=== PATIENT | male | born 1990 | race Caucasian/White ===

== ENCOUNTER 2022-11-24 11:01 | Emergency (ER) | payer SELFPAY ==
[2022-11-24 11:26] LABS: Absolute Lymphocytes (CBC) 1.7 K/uL (0.7-4.9); Hematocrit 47.5 % (39.6-49.0); Lymphocytes % 28.8 % (15.3-44.8); MCV 92.8 fL (80-100); RBC Red Blood Cell Count 5.11 M/uL (4.33-5.43)
[2022-11-24] MEDS ORDERED: KETOROLAC 30 MG/ML INJ ONE (11:28)
[2022-11-24] MEDS ORDERED: NA CHLORIDE 0.9% 1,000 ML ONE (11:30)
[2022-11-24 11:35] LABS: Specific Gravity 1.022 (1.005-1.030); Urine Bacteria None Seen /HPF (<20); Urine Bilirubin NEGATIVE (Negative); Urine Blood Negative (Negative); Urine Clarity Extremely Turbid (Clear); Urine Color Yellow (Yellow); Urine Glucose NEGATIVE (Negative); Urine Mucus Slight /HPF (None Seen); Urine Protein NEGATIVE (Negative); Urine RBC <5 /HPF (None Seen); Urine Urobilinogen Normal (Normal)
[2022-11-24 11:45] LABS: Albumin 3.9 g/dL (3.4-5.0); Bilirubin Total 0.3 mg/dL (0.2-1.0); Potassium 4.1 mEq/L (3.5-5.1); Protein, Total 7.2 g/dL (6.4-8.2)
--- NOTE | 2022-11-24 12:13 | ER ---
Nurse's Notes [facility] Name: Andrea Mendoza Age: 32 yrs Sex: Male : 1990 Arrival Date: 11/24/2022 Time: 11:01 Bed 19 Private MD: Diagnosis: Low back pain Presentation: 11/24 11:12 Chief complaint: Patient states: lower back pain X 1 week, +dark urine, no pain with iw urination or blood in urine, deniesn/v/d , no fever. Coronavirus screen: At this time, the client does not indicate any symptoms associated with coronavirus-19. Ebola Screen: Patient negative for fever greater than or equal to 101.5 degrees Fahrenheit, and additional compatible Ebola Virus Disease symptoms Patient denies exposure to infectious person. Patient denies travel to an Ebola-affected area in the 21 days before illness onset. No symptoms or risks identified at this time. Initial Sepsis Screen: Does the patient meet any 2 criteria? No. Patient's initial sepsis screen is negative. Does the patient have a suspected source of infection? No. Patient's initial sepsis screen is negative. Risk Assessment: Do you want to hurt yourself or someone else? Patient reports no desire to harm self or others. Onset of symptoms was November 16, 2022. 11:12 Method Of Arrival: Ambulatory iw 11:12 Acuity: JW 3 iw Triage Assessment: 11:30 General: Appears in no apparent distress. iw Historical: - Allergies: 11:14 No Known Allergies; iw - Home Meds: 11:14 None [Active]; iw - PMHx: 11:14 None; iw - PSHx: 11:14 None; iw - Immunization history:: Adult Immunizations not up to date. - Social history:: Smoking status: Patient reports the use of cigarette tobacco products, smokes one-half pack cigarettes per day. Screenin:28 [facility] ED Fall Risk Assessment (Adult) History of falling in the last 3 months, db including since admission No falls in past 3 months (0 pts) Confusion or Disorientation No (0 pts) Intoxicated or Sedated No (0 pts) Impaired Gait No (0 pts) Mobility Assist Device Used No (0 pt) Altered Elimination No (0 pt) Score/Fall Risk Level 0 - 2 = Low Risk Oriented to surroundings, Maintained a safe environment. Abuse screen: Denies threats or abuse. Denies injuries from another. Nutritional screening: No deficits noted. Tuberculosis screening: No symptoms or risk factors identified. Assessment: 11:16 Reassessment: Patient appears in no apparent distress at this time. Patient and/or db family updated on plan of care and expected duration. Pain level reassessed. Patient is alert, oriented x 3, equal unlabored respirations, skin warm/dry/pink. COMPLAINS OF RIGHT FLANK PAIN. General: Appears in no apparent distress. comfortable, Behavior is calm, cooperative. Pain: Complains of pain in back. Neuro: Level of Consciousness is awake, alert, obeys commands, Oriented to person, place, time, situation. 12:30 Reassessment: Patient appears in no apparent distress at this time. Patient and/or iw family updated on plan of care and expected duration. Pain level reassessed. Patient is alert, oriented x 3, equal unlabored respirations, skin warm/dry/pink. General: Appears in no apparent distress. comfortable. Vital Signs: 11:12 BP 136 / 92; Pulse 78; Resp 16; Temp 98.4; Pulse Ox 99% on R/A; Weight 79.38 kg; Height iw 5 ft. 11 in. ; Pain 7/10; 11:30 BP 126 / 80; Pulse 65; Resp 16; Pulse Ox 99% on R/A; iw 12:15 BP 123 / 76; Pulse 58; Resp 16; Pulse Ox 99% on R/A; iw 11:12 Body Mass Index 24.41 (79.38 kg, 180.34 cm) iw 11:12 Pain Scale: Adult iw ED Course: 11:04 Patient arrived in ED. im 11:04 Lynn Cheung FNP-C is PHCP. kb 11:04 Annetta Norman MD is Attending Physician. kb 11:14 Triage completed. iw 11:14 Arm band placed on. iw 11:20 Inserted saline lock: 18 gauge in right antecubital area, using aseptic technique. dd1 11:26 Karon Dumont, RN is Primary Nurse. db 12:29 Patient has correct armband on for positive identification. Bed in low position. Call iw light in reach. Side rails up X 1. Provided Education on: discharge. 12:30 No provider procedures requiring assistance completed. IV discontinued, intact, iw bleeding controlled, No redness/swelling at site. Administered Medications: 11:18 Drug: NS 0.9% IV 1000 ml Route: IV; Rate: 1 bolus; Site: right antecubital; db 12:27 Follow up: Response: No adverse reaction; IV Status: Completed infusion; IV Intake: iw 1000ml 11:19 Drug: TORadol - Ketorolac IVP 15 mg Route: IVP; Site: right antecubital; db 12:27 Follow up: Response: No adverse reaction iw Medication: 12:30 VIS not applicable for this client. iw Intake: 12:27 IV: 1000ml; Total: 1000ml. iw Outcome: 12:13 Discharge ordered by . [email or web address] 12:30 Discharged to home ambulatory, with family. iw 12:30 Condition: stable 12:30 Discharge instructions given to patient, family, Instructed on discharge instructions, follow up and referral plans. Prescriptions given X 2. 12:31 Patient left the ED. iw Signatures: Lynn Cheung, ENVIRONMENTAL STUDIES DEPARTMENT CHAIR-C ENVIRONMENTAL STUDIES DEPARTMENT CHAIR-Lucina Avalos, RN RN iw Karon Dumont, RN RN db Doris Villarreal Daniel, RN RN dd1
--- NOTE | 2022-11-24 12:13 | EDPHYS ---
Physician Documentation [facility] Name: Andrea Mendoza Age: 32 yrs Sex: Male : 1990 Arrival Date: 11/24/2022 Time: 11:01 Bed 19 Private MD: ED Physician Annetta Norman HPI: 11/24 16:01 This 32 yrs old Male presents to ER via Ambulatory with complaints of Low Back Pain. kb 16:01 The patient presents with pain that is acute. kb 16:01 The symptoms are located in the low back. The pain does not radiate. The problem was kb sustained from unknown cause. Onset: The symptoms/episode began/occurred 1 week(s) ago. Modifying factors: The patient symptoms are alleviated by nothing, the patient symptoms are aggravated by any movement. Associated signs and symptoms: The patient has no apparent associated signs or symptoms. Severity of symptoms: At their worst the symptoms were moderate, in the emergency department the symptoms are unchanged. The patient has not experienced similar symptoms in the past. The patient has not recently seen a physician. Historical: - Allergies: 11:14 No Known Allergies; iw - Home Meds: 11:14 None [Active]; iw - PMHx: 11:14 None; iw - PSHx: 11:14 None; iw - Immunization history:: Adult Immunizations not up to date. - Social history:: Smoking status: Patient reports the use of cigarette tobacco products, smokes one-half pack cigarettes per day. ROS: 16:00 Constitutional: Negative for fever, chills, and weight loss. kb 16:00 Back: Positive for pain at rest, pain with movement, of the right low back. 16:00 All other systems are negative. Exam: 16:00 Constitutional: This is a well developed, well nourished patient who is awake, alert, kb and in no acute distress. Head/Face: Normocephalic, atraumatic. ENT: Moist Mucous membranes Cardiovascular: Regular rate and rhythm with a normal S1 and S2. No gallops, murmurs, or rubs. No pulse deficits. Respiratory: Respirations even and unlabored. No increased work of breathing. Talking in full sentences Abdomen/GI: Soft, non-tender. No distention Skin: Warm, dry with normal turgor. Normal color. MS/ Extremity: Pulses equal, no cyanosis. Neurovascular intact. Full, normal range of motion. Neuro: Awake and alert, GCS 15, oriented to person, place, time, and situation. Moves all extremities. Normal gait. 16:00 Back: pain, that is moderate, of the right low back, ROM is painful, normal spinal alignment noted, CVA tenderness, is absent. Vital Signs: 11:12 BP 136 / 92; Pulse 78; Resp 16; Temp 98.4; Pulse Ox 99% on R/A; Weight 79.38 kg; Height iw 5 ft. 11 in. ; Pain 7/10; 11:30 BP 126 / 80; Pulse 65; Resp 16; Pulse Ox 99% on R/A; iw 12:15 BP 123 / 76; Pulse 58; Resp 16; Pulse Ox 99% on R/A; iw 11:12 Body Mass Index 24.41 (79.38 kg, 180.34 cm) iw 11:12 Pain Scale: Adult iw MDM: 11:04 Patient medically screened. kb 16:00 Differential diagnosis: strain, sciatica, contusion, Herniated disc UTI. Data reviewed: kb vital signs, nurses notes. Test considered but Not performed: CT: CT stone considered, but urine negative for blood and infection, no CVA tenderness. Counseling: I had a detailed discussion with the patient and/or guardian regarding: the historical points, exam findings, and any diagnostic results supporting the discharge/admit diagnosis, lab results, the need for outpatient follow up, a family practitioner, to return to the emergency department if symptoms worsen or persist or if there are any questions or concerns that arise at home. 11/24 11:08 Order name: CBC with Diff; Complete Time: 12:07 kb 11/24 11:08 Order name: CMP; Complete Time: 12:07 kb 11/24 11:08 Order name: Lipase; Complete Time: 12:07 kb 11/24 11:08 Order name: Urinalysis w/ reflexes; Complete Time: 12:07 kb 11/24 11:08 Order name: IV Saline Lock; Complete Time: 11:19 kb 11/24 11:08 Order name: Labs collected and sent; Complete Time: 11:20 kb Administered Medications: 11:18 Drug: NS 0.9% IV 1000 ml Route: IV; Rate: 1 bolus; Site: right antecubital; db 12:27 Follow up: Response: No adverse reaction; IV Status: Completed infusion; IV Intake: iw 1000ml 11:19 Drug: TORadol - Ketorolac IVP 15 mg Route: IVP; Site: right antecubital; db 12:27 Follow up: Response: No adverse reaction iw Disposition: 19:14 I reviewed the patient's care provided by Advanced Practice Provider \T\ agree w/ the cp3 diagnosis \T\ care plan. I personally saw the pt \T\ performed a substantive portion of the visit, incldng all aspects of the (History/Exam/Medical Decision Making). Disposition Summary: 11/24/22 12:13 Discharge Ordered Location: Home kb Condition: Stable kb Diagnosis - Low back pain kb Followup: kb - With: Emergency Department - When: As needed - Reason: Worsening of condition Followup: kb - With: Private Physician - When: 2 - 3 days - Reason: Recheck today's complaints, Continuance of care, Re-evaluation by your physician Discharge Instructions: - Discharge Summary Sheet kb - Musculoskeletal Pain kb Forms: - Medication Reconciliation Form kb - Thank You Letter kb - Antibiotic Education kb - Prescription Opioid Use kb - Patient Portal Instructions kb Prescriptions: - Diclofenac Sodium 75 mg Oral tablet,delayed release (DR/EC) - take 1 tablet by ORAL route 2 times per day As needed; 30 tablet; Refills: 0, kb Product Selection Permitted - orphenadrine citrate 100 mg Oral Tablet Sustained Release - take 1 tablet by ORAL route 2 times per day As needed; 20 tablet; Refills: 0, kb Product Selection Permitted Signatures: Dispatcher [employer] Lynn Trimble, Annetta Gongora MD MD cp3 Lucina Bernal, RN RN iw Karon Dumont, RN RN db
[2022-11-24 12:38] VITALS: TEMP 98.4; O2SAT 99
[2022-11-24 12:42] VITALS: BP 123/76
== END 2022-11-24 12:31 | disposition home or self-care (01) ==
LOC: ER 11:01
DX: M54.50 Low back pain, unspecified (principal); F17.210 Nicotine dependence, cigarettes, uncomplicated
CPT/HCPCS: 36415; 80053; 81001; 83690; 85025; 96361; 96374; 99284; J7030